=== PATIENT | female | born 1975 | race American Indian/Alaskan Native ===

== ENCOUNTER 2017-05-21 08:19 | Emergency (ER) | payer OTHER ==
[2017-05-21 08:50] LABS: Bacteria,Urine 1+ /HPF (Negative); Bilirubin,Urine NEG (Negative); Blood,Urine NEG (Negative); Ketones,Urine NEG (Negative); Leukocyte Esterase,Urine MOD (Negative); Mucus,Urine FEW /HPF; Nitrite,Urine NEG (Negative); Protein,Urine <15 mg/dL mg/dL (Negative)
[2017-05-21] MEDS ORDERED: XYLOCAINE 1% MPF 5 mL INFILTRATI ONE (10:53)
[2017-05-21] MEDS ORDERED: ROCEPHIN IM ONE (10:53)
[2017-05-21] MEDS ORDERED: TORADOL IM ONE (10:54)
[2017-05-21] MEDS ORDERED: CATAPRES PO ONE (10:55)
--- NOTE | 2017-05-21 10:56 | Emergency Department Report ---
ED Female HPI - General Chief complaint: Back Pain/Injury Stated complaint: BACK PAIN /HEADACHE/ CHEST PAIN Time Seen by Provider: 05/21/17 10:25 Source: patient Mode of arrival: Ambulatory Limitations: No Limitations - Related Data Home Medications Medication Instructions Recorded Confirmed Last Taken Atenolol/Chlorthalidone [Tenoretic 1 tab PO DAILY 10/05/13 05/20/16 Unknown 50-25 mg] Previous Rx's Medication Instructions Recorded Last Taken Type Hydrochlorothiazide 25 mg PO DAILY #30 tablet 10/05/13 Unknown Rx Naproxen Sodium (Nf) [Anaprox DS 550 mg PO BID PRN #14 tablet 10/05/13 Unknown Rx TAB] Ibuprofen [Motrin 800 MG tab] 800 mg PO Q8H #30 tablet 03/09/14 Unknown Rx Atenolol [Tenormin] 50 mg PO DAILY #30 tab 05/20/16 Unknown Rx Hydrochlorothiazide [HCTZ] 25 mg PO QDAY #60 tablet 05/20/16 Unknown Rx Atenolol [Tenormin] 50 mg PO DAILY #30 tab 05/21/17 Unknown Rx Ciprofloxacin HCl [Ciprofloxacin 500 mg PO Q12H #10 tab 05/21/17 Unknown Rx TAB] Hydrochlorothiazide [HCTZ] 50 mg PO QDAY #30 tablet 05/21/17 Unknown Rx Allergies Allergy/AdvReac Type Severity Reaction Status Date / Time No Known Allergies Allergy Verified 05/21/17 08:24 ED Review of Systems ROS: Stated complaint: BACK PAIN /HEADACHE/ CHEST PAIN Other details as noted in HPI Comment: All other systems reviewed and negative Constitutional: no symptoms reported, see HPI. denies: chills, diaphoresis, fever, malaise Eyes: as per HPI. denies: eye pain ENT: as per HPI. denies: ear pain, throat pain Respiratory: no symptoms reported, see HPI. denies: cough, orthopnea Cardiovascular: as per HPI. denies: chest pain, palpitations, dyspnea on exertion, orthopnea Endocrine: no symptoms reported, see HPI. denies: excessive sweating, flushing , intolerance to heat Gastrointestinal: as per HPI. denies: abdominal pain, nausea, vomiting Genitourinary: as per HPI, dysuria. denies: urgency, frequency, hematuria, discharge Musculoskeletal: as per HPI, back pain, myalgia, other. denies: joint swelling , arthralgia Skin: as per HPI. denies: rash, lesions Neurological: as per HPI. denies: headache, weakness Psychiatric: as per HPI. denies: anxiety, depression Hematological/Lymphatic: as per HPI. denies: easy bleeding ED Past Medical Hx - Past Medical History Hx Hypertension: Yes Hx Arthritis: Yes (lower back) Additional medical history: high cholesterol. mild scoliosis. chronic back pain - Surgical History Past Surgical History?: No - Social History Smoking Status: Never Smoker Substance Use Type: Alcohol - Medications Home Medications: Home Medications Medication Instructions Recorded Confirmed Last Taken Type Atenolol/Chlorthalidone [Tenoretic 1 tab PO DAILY 10/05/13 05/20/16 Unknown History 50-25 mg] Hydrochlorothiazide 25 mg PO DAILY #30 tablet 10/05/13 05/20/16 Unknown Rx Naproxen Sodium (Nf) [Anaprox DS 550 mg PO BID PRN #14 tablet 10/05/13 05/20/16 Unknown Rx TAB] Ibuprofen [Motrin 800 MG tab] 800 mg PO Q8H #30 tablet 03/09/14 05/20/16 Unknown Rx Atenolol [Tenormin] 50 mg PO DAILY #30 tab 05/20/16 Unknown Rx Hydrochlorothiazide [HCTZ] 25 mg PO QDAY #60 tablet 05/20/16 Unknown Rx Atenolol [Tenormin] 50 mg PO DAILY #30 tab 05/21/17 Unknown Rx Ciprofloxacin HCl [Ciprofloxacin 500 mg PO Q12H #10 tab 05/21/17 Unknown Rx TAB] Hydrochlorothiazide [HCTZ] 50 mg PO QDAY #30 tablet 05/21/17 Unknown Rx ED Physical Exam - General Limitations: No Limitations General appearance: alert, in no apparent distress - Head Head exam: Present: atraumatic - Eye Eye exam: Present: normal appearance - ENT ENT exam: Present: normal exam, mucous membranes moist - Neck Neck exam: Present: normal inspection. Absent: tenderness, meningismus - Respiratory Respiratory exam: Present: normal lung sounds bilaterally. Absent: respiratory distress - Cardiovascular Cardiovascular Exam: Present: regular rate, other (18) - GI/Abdominal GI/Abdominal exam: Present: soft, normal bowel sounds. Absent: distended, tenderness, guarding, rebound, rigid, diminished bowel sounds - Rectal Rectal exam: Present: deferred - Extremities Exam Extremities exam: Present: normal inspection, full ROM, normal capillary refill. Absent: tenderness, pedal edema, joint swelling - Back Exam Back exam: Present: normal inspection, full ROM, CVA tenderness (R) (mild). Absent: tenderness, CVA tenderness (L), muscle spasm, paraspinal tenderness, vertebral tenderness, rash noted - Neurological Exam Neurological exam: Present: alert, oriented X3, CN II-XII intact, normal gait, reflexes normal. Absent: altered, abnormal gait, motor sensory deficit - Psychiatric Psychiatric exam: Present: normal affect, normal mood - Skin Skin exam: Present: warm, dry, intact, normal color, rash. Absent: cyanosis, diaphoretic, erythema, urticaria, vesicles ED Course Vital Signs 05/21/17 05/21/17 05/21/17 08:26 11:26 11:58 Temperature 98.1 F 98.1 F Pulse Rate 70 79 65 Respiratory 18 16 Rate Blood Pressure 147/98 173/105 Blood Pressure 154/96 [Right] O2 Sat by Pulse 100 100 Oximetry - Reevaluation(s) Reevaluation #2: 05/21/17 to er w what she thought was pain in her back from scoliosis no trauma pos dysuria mild r cva tenderness no fever non ill appearing not taking bp meds bc ran out no cp or sob medicated and reeval ED Medical Decision Making - Medical Decision Making vss nad no fever has xray from her PCP scoliosis no trauma ua noted Critical care attestation.: If time is entered above; I have spent that time in minutes in the direct care of this critically ill patient, excluding procedure time. ED Disposition Clinical Impression: UTI (urinary tract infection), Hypertension, Non-adherence to medical treatment , Chronic back pain, Scoliosis Disposition: DC- TO HOME OR SELFCARE Is pt being admited?: No Does the pt Need Aspirin: No Condition: Stable Instructions: Urinary Tract Infection in Women (ED), Hypertension (ED) Additional Instructions: rest fluids increase hydration med as ordered follow up pcp take bp meds as scheduled scoliosis is a chronic disorder. you were born with it. follow up ortho. Prescriptions: Atenolol [Tenormin] 50 mg PO DAILY #30 tab Ciprofloxacin HCl [Ciprofloxacin TAB] 500 mg PO Q12H #10 tab Hydrochlorothiazide [HCTZ] 50 mg PO QDAY #30 tablet Referrals: PRIMARY CARE, [Primary Care Provider] - 3-5 Days SHITAL MULLER MD [Staff Physician] - 3-5 Days UMA HORTON MD [Staff Physician] - 3-5 Days Time of Disposition: 11:25
[2017-05-21 11:59] VITALS: BP 154/96
== END 2017-05-21 11:59 | disposition home or self-care (01) ==
LOC: ED 08:19
DX: N39.0 Urinary tract infection, site not specified (principal); I10 Essential (primary) hypertension; M41.9 Scoliosis, unspecified; M19.90 Unspecified osteoarthritis, unspecified site; E78.00 Pure hypercholesterolemia, unspecified
CPT/HCPCS: 81001; 81025; 96372; 99283; J0696; J1885

== ENCOUNTER 2018-05-19 20:38 | Emergency (ER) | payer SELFPAY ==
[2018-05-19] MEDS ORDERED: NACL 0.9% 500 ML 500 ML IV ONE (21:04)
[2018-05-19] MEDS ORDERED: TORADOL IV ONE (21:05)
--- NOTE | 2018-05-19 21:08 | Emergency Department Report ---
ED Chest Pain HPI - General Chief Complaint: Chest Pain Stated Complaint: CHEST PAIN Time Seen by Provider: 05/19/18 20:55 Source: patient, EMS (ems notes not available at time of chart dictation), RN notes reviewed, old records reviewed Mode of arrival: Stretcher Limitations: No Limitations - History of Present Illness Initial Comments: This is a 43-year-old female who is unknown to this provider previously. Has a history of chronic back pain, hypertension, high cholesterol. She reports not having a local primary care doctor. She presents to the ER with a complaint of anterior chest wall pain which has been present for a few weeks. The pain is achy, crampy and sharp, intermittent, increases with palpation and decreases with rest. It does not radiate to the back, arms or neck. There is no vomiting , diaphoresis. There is no shortness of breath. She has not delivered a given within the past 2 months, she is not on oral contraceptives, she reports that she is not , she denies recent surgery, immobilization, and denies DVT, pulmonary embolus risk factors. She denies recent aspirin use, denies cocaine use. MD Complaint: chest pain -: Gradual, week(s) Onset: during rest Pain Location: substernal Pain Radiation: none Severity: mild Quality: aching Consistency: intermittent Improves With: rest Worsens With: movement re: denies: nausea, vomting, diaphoresis Other Symptoms: syncope (near syncope). denies: cough, fever Treatments Prior to Arrival: other (ems notes not available at time of chart dictation) Aspirin use within the Past 7 Days: (0) No - Related Data On Oral Contraceptives: No Home Medications Medication Instructions Recorded Confirmed Last Taken Atenolol/Chlorthalidone [Tenoretic 1 tab PO DAILY 10/05/13 05/20/16 Unknown 50-25 mg] Previous Rx's Medication Instructions Recorded Last Taken Type Hydrochlorothiazide 25 mg PO DAILY #30 tablet 10/05/13 Unknown Rx Naproxen Sodium (Nf) [Anaprox DS 550 mg PO BID PRN #14 tablet 10/05/13 Unknown Rx TAB] Ibuprofen [Motrin 800 MG tab] 800 mg PO Q8H #30 tablet 03/09/14 Unknown Rx Atenolol [Tenormin] 50 mg PO DAILY #30 tab 05/20/16 Unknown Rx Hydrochlorothiazide [HCTZ] 25 mg PO QDAY #60 tablet 05/20/16 Unknown Rx Atenolol [Tenormin] 50 mg PO DAILY #30 tab 05/21/17 Unknown Rx Ciprofloxacin HCl [Ciprofloxacin 500 mg PO Q12H #10 tab 05/21/17 Unknown Rx TAB] Hydrochlorothiazide [HCTZ] 50 mg PO QDAY #30 tablet 05/21/17 Unknown Rx Aspirin [Aspirin BABY CHEW TAB] 81 mg PO QDAY #30 tab.chew 05/19/18 Unknown Rx Potassium Chloride [K-Dur] 20 meq PO BID #20 tab 05/19/18 Unknown Rx Allergies Allergy/AdvReac Type Severity Reaction Status Date / Time No Known Allergies Allergy Verified 05/21/17 08:24 Heart Score - HEART Score History: Slightly suspicious EKG: Normal Age: < 45 Risk factors: 1-2 risk factors Troponin: < normal limit HEART Score: 1 - Critical Actions Critical Actions: 0-3 pts:0.9-1.7%risk of adverse cardiac event.Candidate for discharge ED Review of Systems ROS: Stated complaint: CHEST PAIN Other details as noted in HPI Constitutional: denies: fever Eyes: denies: eye discharge ENT: denies: epistaxis Respiratory: denies: cough Cardiovascular: chest pain Gastrointestinal: denies: vomiting Genitourinary: as per HPI Musculoskeletal: as per HPI, back pain (chronic) Neurological: as per HPI Psychiatric: anxiety ED Past Medical Hx - Past Medical History Hx Hypertension: Yes Hx Arthritis: Yes (lower back) Additional medical history: high cholesterol. mild scoliosis. chronic back pain - Social History Smoking Status: Never Smoker - Medications Home Medications: Home Medications Medication Instructions Recorded Confirmed Last Taken Type Atenolol/Chlorthalidone [Tenoretic 1 tab PO DAILY 10/05/13 05/20/16 Unknown History 50-25 mg] Hydrochlorothiazide 25 mg PO DAILY #30 tablet 10/05/13 05/20/16 Unknown Rx Naproxen Sodium (Nf) [Anaprox DS 550 mg PO BID PRN #14 tablet 10/05/13 05/20/16 Unknown Rx TAB] Ibuprofen [Motrin 800 MG tab] 800 mg PO Q8H #30 tablet 03/09/14 05/20/16 Unknown Rx Atenolol [Tenormin] 50 mg PO DAILY #30 tab 05/20/16 Unknown Rx Hydrochlorothiazide [HCTZ] 25 mg PO QDAY #60 tablet 05/20/16 Unknown Rx Atenolol [Tenormin] 50 mg PO DAILY #30 tab 05/21/17 Unknown Rx Ciprofloxacin HCl [Ciprofloxacin 500 mg PO Q12H #10 tab 05/21/17 Unknown Rx TAB] Hydrochlorothiazide [HCTZ] 50 mg PO QDAY #30 tablet 05/21/17 Unknown Rx Aspirin [Aspirin BABY CHEW TAB] 81 mg PO QDAY #30 tab.chew 05/19/18 Unknown Rx Potassium Chloride [K-Dur] 20 meq PO BID #20 tab 05/19/18 Unknown Rx ED Physical Exam - General Limitations: No Limitations General appearance: alert, in no apparent distress - Head Head exam: Present: atraumatic, normocephalic - Eye Eye exam: Present: normal appearance, EOMI. Absent: nystagmus - ENT ENT exam: Present: normal exam, normal orophraynx, mucous membranes moist, normal external ear exam - Neck Neck exam: Present: normal inspection, full ROM. Absent: tenderness, meningismus - Respiratory Respiratory exam: Present: normal lung sounds bilaterally, chest wall tenderness , other (during the chest, breast exam, escorted by nurse Ricarda Carranza). Absent: respiratory distress - Cardiovascular Cardiovascular Exam: Present: regular rate, normal rhythm, normal heart sounds. Absent: bradycardia, tachycardia, irregular rhythm, systolic murmur, diastolic murmur, rubs, gallop - GI/Abdominal GI/Abdominal exam: Present: soft, normal bowel sounds. Absent: distended, tenderness, guarding, rebound, rigid, pulsatile mass - Extremities Exam Extremities exam: Present: normal inspection, full ROM, normal capillary refill , other (2+ pulses noted in the bilateral upper, lower extremities. Compartments soft. No long bony tenderness. The pelvis is stable.). Absent: tenderness, pedal edema, joint swelling, calf tenderness (no palpable cord. Negative Homans sign.) - Back Exam Back exam: Present: normal inspection, full ROM. Absent: tenderness, CVA tenderness (R), paraspinal tenderness, vertebral tenderness - Neurological Exam Neurological exam: Present: alert, oriented X3, CN II-XII intact, normal gait, other (Extraocular movements intact. Tongue midline. No facial droop. Facial sensation intact to light touch in the V1, V2, V3 distribution bilaterally. 5 and 5 strength in 4 extremities.. Sensation is intact to light touch in 4 extremities.). Absent: motor sensory deficit - Psychiatric Psychiatric exam: Present: normal affect, normal mood - Skin Skin exam: Present: warm, dry, intact, normal color. Absent: rash ED Course Vital Signs 05/19/18 05/19/18 05/19/18 20:57 21:04 21:25 Temperature 97.6 F 98.5 F Pulse Rate 91 H 89 Respiratory 18 12 Rate Blood Pressure 119/73 Blood Pressure 113/75 [Left] O2 Sat by Pulse 98 Oximetry - Reevaluation(s) Reevaluation #1: 05/19/18 23:14 Differential diagnosis, including but not limited to: Orthostasis, costochondritis, acute coronary syndrome, structural cardiac disease, pneumonia , pulmonary embolus Assessment and plan: 43-year-old female with reproducible chest wall pain, low risk by well's criteria, perc negative, negative d-dimer, no pulmonary embolus or DVT risk factors, near-syncope, chest pain for a few weeks. Low risk by RYAN score, low risk by heart score. EKG unremarkable 1, repeat troponin, repeat EKG pending. Patient has been observed in the ER for hours without clinical decompensation. Given that she's been having symptoms for a few weeks , she is low risk for major adverse cardiac event, and she is suitable to follow up with outpatient cardiology to complete the cardiac risk stratification. Reevaluation #2: 05/20/18 01:53 Vital signs remained stable. No episodes of syncope. Patient noted to be walking around speaking on the phone and in no distress. She is asking go home. She will be discharged at this time. Return precautions are reviewed. RYAN score - Ryan Score Age > 65: (0) No Aspirin use within the Past 7 Days: (0) No 3 or more CAD Risk Factors: (0) No 2 or more Angina events in past 24 hrs: (0) No Known CAD with more than 50% Stenosis: (0) No Elevated Cardiac Markers: (0) No ST Deviation Greater than 0.5mm: (0) No RYAN Score: 0 ED Medical Decision Making - Lab Data Result diagrams: 05/19/18 21:14 05/19/18 21:14 - EKG Data -: EKG Interpreted by Ct EKG shows normal: sinus rhythm, axis, intervals, ST-T waves - EKG Data When compared to previous EKG there are: previous EKG unavailable Critical care attestation.: If time is entered above; I have spent that time in minutes in the direct care of this critically ill patient, excluding procedure time. ED Disposition Clinical Impression: Chest wall pain, Hypokalemia Disposition: TO HOME OR SELFCARE Is pt being admited?: No Does the pt Need Aspirin: No Condition: Good Instructions: Chest Pain (ED), Costochondritis (ED) Additional Instructions: Take medications as directed. Follow up with any of the listed cardiology groups within the next 3-5 days. Return to the ER right away with new pain, worsened pain, migration of pain, fevers, chills, lethargy, irritability, confusion, projectile vomiting, change in mental status, inability to tolerate feeds. It is important to follow up with outpatient cardiology as recommended to complete her cardiac risk stratification and received evaluation for cardiac stress test. Prescriptions: Aspirin [Aspirin BABY CHEW TAB] 81 mg PO QDAY #30 tab.chew Potassium Chloride [K-Dur] 20 meq PO BID #20 tab Referrals: PRIMARY CARE, [Primary Care Provider] - 3-5 Days [facility] [Provider Group] - 3-5 Days [facility] [Provider Group] - 3-5 Days
[2018-05-19 21:43] LABS: Hemoglobin 11.9 gm/dl (10.1-14.3); Mean Corpuscular HGB Conc 34 % (30-34); Mean Corpuscular Hemoglobin 31 pg (28-32); Mean Corpuscular Volume 91 fl (79-97); Platelet Count 255 K/mm3 (140-440); Red Blood Count 3.84 M/mm3 (3.65-5.03); Red Cell Distribution Width 12.8 % (13.2-15.2)
[2018-05-19 21:44] LABS: INR 0.95 (0.87-1.13)
[2018-05-19 21:45] LABS: Partial Thromboplastin Time 22.4 Sec. (24.2-36.6)
[2018-05-19 22:03] LABS: Alanine Aminotransferase 11 units/L (7-56); Albumin 4.1 g/dL (3.9-5); BUN/Creatinine Ratio 13; Blood Urea Nitrogen 9 mg/dL (7-17); Calcium 9.3 mg/dL (8.4-10.2); Hemolysis Index 0
[2018-05-19] MEDS ORDERED: K-DUR PO ONE (23:16)
[2018-05-20 02:11] VITALS: BP 129/92
--- NOTE | 2018-05-20 16:19 | XRay Report ---
FINAL REPORT EXAM: XR CHEST ROUTINE 2V HISTORY: Chest Pain TECHNIQUE: PA and lateral views of the chest Comparison: None FINDINGS: There is no evidence of infiltrate, pneumothorax or pleural fluid collection. The cardiac silhouette appears to be upper limits of normal size. The thoracic aorta is unremarkable. The bony structures are notable for dextrocurvature of the thoracic spine. IMPRESSION: 1. No evidence of an acute pulmonary process. 2. Dextrocurvature thoracic spine.
== END 2018-05-20 02:11 | disposition home or self-care (01) ==
LOC: ED 20:38
DX: R07.89 Other chest pain (principal); E87.6 Hypokalemia; M54.9 Dorsalgia, unspecified; G89.29 Other chronic pain; I10 Essential (primary) hypertension; E78.00 Pure hypercholesterolemia, unspecified; Z79.82 Long term (current) use of aspirin
CPT/HCPCS: 36415; 71046; 80053; 83735; 84484; 84703; 85027; 85379; 85610; 85730; 93005; 93010; 96365; 99284; J1885; J7040

== ENCOUNTER 2018-06-14 08:42 | Emergency (ER) | payer SELFPAY ==
[2018-06-14 09:30] VITALS: BP 140/96
--- NOTE | 2018-06-14 10:24 | Emergency Department Report ---
ED General Adult HPI - General Chief complaint: Pain General Stated complaint: CHEST PAIN/BACK PAIN Time Seen by Provider: 06/14/18 10:12 Source: patient Mode of arrival: Ambulatory Limitations: No Limitations - History of Present Illness Initial comments: Ms. Dennis presents with multiple concerns. She has chronic knee pain. She has chronic back pain. She also is concerned about chest pain when she yawns or take a deep breath. Chest pain has been present for one month. She also is worried that the medicines general herpes is causing her to feel ill. She also requests medication refill for Tylenol and hydrochlorothiazide. She doesn't smoke. She does not take hormone therapy. She does live with smokers. - Related Data Home Medications Medication Instructions Recorded Confirmed Last Taken Atenolol/Chlorthalidone [Tenoretic 1 tab PO DAILY 10/05/13 05/20/16 Unknown 50-25 mg] Previous Rx's Medication Instructions Recorded Last Taken Type Hydrochlorothiazide 25 mg PO DAILY #30 tablet 10/05/13 Unknown Rx Naproxen Sodium (Nf) [Anaprox DS 550 mg PO BID PRN #14 tablet 10/05/13 Unknown Rx TAB] Ibuprofen [Motrin 800 MG tab] 800 mg PO Q8H #30 tablet 03/09/14 Unknown Rx Atenolol [Tenormin] 50 mg PO DAILY #30 tab 05/20/16 Unknown Rx hydroCHLOROthiazide [HCTZ] 25 mg PO QDAY #60 tablet 05/20/16 Unknown Rx Atenolol [Tenormin] 50 mg PO DAILY #30 tab 05/21/17 Unknown Rx Ciprofloxacin HCl [Ciprofloxacin 500 mg PO Q12H #10 tab 05/21/17 Unknown Rx TAB] Hydrochlorothiazide [HCTZ] 50 mg PO QDAY #30 tablet 05/21/17 Unknown Rx Aspirin [Aspirin BABY CHEW TAB] 81 mg PO QDAY #30 tab.chew 05/19/18 Unknown Rx Potassium Chloride [K-Dur] 20 meq PO BID #20 tab 05/19/18 Unknown Rx Atenolol 50 mg PO DAILY 90 Days #90 tablet 06/14/18 Unknown Rx Famotidine 20 mg PO BID 30 Days #60 tablet 06/14/18 Unknown Rx Naproxen [Naprosyn] 500 mg PO BID 7 Days #14 tablet 06/14/18 Unknown Rx hydroCHLOROthiazide 50 mg PO DAILY 90 Days #90 tablet 06/14/18 Unknown Rx [Hydrochlorothiazide] Allergies Allergy/AdvReac Type Severity Reaction Status Date / Time No Known Allergies Allergy Verified 05/21/17 08:24 ED Review of Systems ROS: Stated complaint: CHEST PAIN/BACK PAIN Other details as noted in HPI Comment: All other systems reviewed and negative Constitutional: malaise ED Past Medical Hx - Past Medical History Hx Hypertension: Yes Hx Arthritis: Yes (lower back) Additional medical history: high cholesterol. mild scoliosis. chronic back pain - Social History Smoking Status: Never Smoker - Medications Home Medications: Home Medications Medication Instructions Recorded Confirmed Last Taken Type Atenolol/Chlorthalidone [Tenoretic 1 tab PO DAILY 10/05/13 05/20/16 Unknown History 50-25 mg] Hydrochlorothiazide 25 mg PO DAILY #30 tablet 10/05/13 05/20/16 Unknown Rx Naproxen Sodium (Nf) [Anaprox DS 550 mg PO BID PRN #14 tablet 10/05/13 05/20/16 Unknown Rx TAB] Ibuprofen [Motrin 800 MG tab] 800 mg PO Q8H #30 tablet 03/09/14 05/20/16 Unknown Rx Atenolol [Tenormin] 50 mg PO DAILY #30 tab 05/20/16 Unknown Rx hydroCHLOROthiazide [HCTZ] 25 mg PO QDAY #60 tablet 05/20/16 Unknown Rx Atenolol [Tenormin] 50 mg PO DAILY #30 tab 05/21/17 Unknown Rx Ciprofloxacin HCl [Ciprofloxacin 500 mg PO Q12H #10 tab 05/21/17 Unknown Rx TAB] Hydrochlorothiazide [HCTZ] 50 mg PO QDAY #30 tablet 05/21/17 Unknown Rx Aspirin [Aspirin BABY CHEW TAB] 81 mg PO QDAY #30 tab.chew 05/19/18 Unknown Rx Potassium Chloride [K-Dur] 20 meq PO BID #20 tab 05/19/18 Unknown Rx Atenolol 50 mg PO DAILY 90 Days #90 tablet 06/14/18 Unknown Rx Famotidine 20 mg PO BID 30 Days #60 tablet 06/14/18 Unknown Rx Naproxen [Naprosyn] 500 mg PO BID 7 Days #14 tablet 06/14/18 Unknown Rx hydroCHLOROthiazide 50 mg PO DAILY 90 Days #90 tablet 06/14/18 Unknown Rx [Hydrochlorothiazide] ED Physical Exam - General Limitations: No Limitations General appearance: alert, in no apparent distress - Head Head exam: Present: atraumatic, normocephalic - Eye Eye exam: Present: normal appearance - ENT ENT exam: Present: mucous membranes moist - Neck Neck exam: Present: normal inspection. Absent: tenderness, meningismus - Respiratory Respiratory exam: Present: normal lung sounds bilaterally. Absent: respiratory distress, wheezes, rales, rhonchi - Cardiovascular Cardiovascular Exam: Present: regular rate, normal rhythm, normal heart sounds. Absent: systolic murmur, diastolic murmur, rubs, gallop - GI/Abdominal GI/Abdominal exam: Present: soft, normal bowel sounds. Absent: distended, tenderness, guarding, rebound - Extremities Exam Extremities exam: Present: normal inspection - Back Exam Back exam: Present: normal inspection - Neurological Exam Neurological exam: Present: alert, oriented X3 - Psychiatric Psychiatric exam: Present: normal affect, normal mood - Skin Skin exam: Present: warm, dry, intact, normal color. Absent: rash ED Course Vital Signs 06/14/18 09:27 Temperature 98.6 F Pulse Rate 82 Respiratory 16 Rate Blood Pressure 140/96 O2 Sat by Pulse 100 Oximetry ED Medical Decision Making - EKG Data -: EKG Interpreted by Ak EKG shows normal: sinus rhythm, axis, intervals, QRS complexes, ST-T waves Rate: normal - EKG Data Interpretation: no acute changes, normal EKG - Medical Decision Making Ms. Dennis presents with multiple concerns. She does not have access to primary care due to lack of insurance. She has been previously followed at [facility]. 1. Chronic back and knee pain due to scoliosis and arthritis. Prescribed naproxen 2. Chest pain atypical for ACS. No indication of PE. PERC neg. will provide famotidine for possible esophagitis. 3 medication refill. Provided 90 day prescription for atenolol and hydrochlorothiazide. Critical care attestation.: If time is entered above; I have spent that time in minutes in the direct care of this critically ill patient, excluding procedure time. ED Disposition Clinical Impression: Chronic back pain greater than 3 months duration, Bilateral knee pain, Chest pain, Medication refill Disposition: TO HOME OR SELFCARE Is pt being admited?: No Does the pt Need Aspirin: No Condition: Stable Instructions: Chest Pain (ED) Prescriptions: Atenolol 50 mg PO DAILY 90 Days #90 tablet Famotidine 20 mg PO BID 30 Days #60 tablet hydroCHLOROthiazide [Hydrochlorothiazide] 50 mg PO DAILY 90 Days #90 tablet Naproxen [Naprosyn] 500 mg PO BID 7 Days #14 tablet Referrals: [facility] [Outside] - 3-5 Days Forms: Work/School Release Form(ED) Time of Disposition: 10:26
== END 2018-06-14 10:35 | disposition home or self-care (01) ==
LOC: ED 08:42
DX: M54.5 Low back pain (principal); M25.562 Pain in left knee; M25.561 Pain in right knee; G89.29 Other chronic pain; R07.89 Other chest pain; I10 Essential (primary) hypertension; E78.00 Pure hypercholesterolemia, unspecified; M19.90 Unspecified osteoarthritis, unspecified site
CPT/HCPCS: 93005; 93010; 99282

== ENCOUNTER 2020-11-08 20:25 | Emergency (ER) | payer OTHER | END 2020-11-08 21:00 | disposition left against medical advice (07) | LOC: ED 20:25 | DX: J00 Acute nasopharyngitis [common cold] (principal); I10 Essential (primary) hypertension; Z53.21 Procedure and treatment not carried out due to patient leaving prior to being seen by health care provider ==